=== PATIENT | male | born 1965 | race Caucasian/White ===

== ENCOUNTER → 2020-09-02 08:38 | Outpatient (BNVA) | payer OTHER, SELFPAY | PROVIDERS: PCP Internal Medicine; Visit Provider Family Medicine Adult Medicine | DX: M51.26 Other intervertebral disc displacement, lumbar region (principal); Z79.891 Long term (current) use of opiate analgesic | CPT/HCPCS: 99212 ==

== ENCOUNTER → 2020-10-12 14:01 | Outpatient (BNVA) | payer OTHER, SELFPAY | PROVIDERS: PCP Internal Medicine; Referring Provider Internal Medicine; Visit Provider Nurse Practitioner Family | DX: Z12.11 Encounter for screening for malignant neoplasm of colon (principal) | CPT/HCPCS: Q3014 ==

== ENCOUNTER 2020-11-05 06:56 | Outpatient (REF) | payer OTHER, SELFPAY ==
[2020-11-05 11:15] LABS: Hematocrit 44.3 % (42-52); Hemoglobin 14.1 g/dl (14.0-18.0); Mean Corpuscular HGB Conc 31.8 g/dl (31.0-36.0); Mean Corpuscular Hemoglobin 28.4 pg (27.0-33.0); Mean Corpuscular Volume 89.3 fL (80-98); Mean Platelet Volume 10.6 fL (9.4-12.4); Platelet Count 187 X10*3/uL (160-400); Red Blood Count 4.96 X10*6/uL (4.60-5.80); Red Cell Distribution Width 13.2 % (11.0-16.0); White Blood Count 8.4 X10*3/uL (4.8-10.8)
[2020-11-05 11:41] LABS: Alanine Aminotransferase 17 U/L (0-40); Albumin Level 4.3 g/dL (3.5-5.0); Alkaline Phosphatase 99 U/L (39-117); Anion Gap 12 (12-20); Aspartate Amino Transferase 19 U/L (5-37); Bilirubin Total 0.2 mg/dL (0.0-1.0); Blood Urea Nitrogen 21 mg/dL (9-16); Calcium 8.9 mg/dL (8.4-10.2); Carbon Dioxide 30 mmol/L (22-29); Chloride 101 mmol/L (96-108); Cholesterol 116 mg/dL; Estimated Glomerular Filt Rate > 60; Glucose Random 93 mg/dL (60-115); HDL Cholesterol 34 mg/dL; LDL Cholesterol Calculated 64 mg/dl; Potassium 4.2 mmol/l (3.3-5.1); Sodium 139 mmol/L (135-145); Total Protein 7.3 g/dL (6.5-8.0); Triglycerides 94 mg/dL
== END 2020-11-05 06:57 | disposition home or self-care (01) ==
LOC: HO.HMGCLDS 06:56
PROVIDERS: PCP Internal Medicine; Visit Provider Nurse Practitioner Family
DX: I25.10 Atherosclerotic heart disease of native coronary artery without angina pectoris (principal); Z12.11 Encounter for screening for malignant neoplasm of colon
CPT/HCPCS: 36415; 80053; 80061; 85027

== ENCOUNTER → 2020-11-10 08:32 | Outpatient (BNVA) | payer OTHER, SELFPAY | PROVIDERS: PCP Internal Medicine; Visit Provider Internal Medicine | DX: Z01.810 Encounter for preprocedural cardiovascular examination (principal); I25.10 Atherosclerotic heart disease of native coronary artery without angina pectoris; I25.2 Old myocardial infarction; R06.02 Shortness of breath | CPT/HCPCS: 93005; 99202 ==

== ENCOUNTER → 2020-11-24 08:33 | Outpatient (REF) | payer OTHER, SELFPAY ==
--- NOTE | 2020-11-24 | NM_ITS ---
Lexiscan Myocardial perfusion study Indication: Shortness of breath, preoperative evaluation, assess for coronary disease and ischemia Technique: The patient was brought in for a Lexiscan perfusion study on 11/24/2020 and was injected 0.4 mg of Lexiscan intravenously. Within a minute of this injection 30 mCi of sestamibi was given intravenously. Images were obtained using the SPECT gamma camera interlaced with the gating device. Images were obtained in supine position. Resting perfusion study was performed on 11/25/2020. Patient was administered 30 mCi of sestamibi intravenously at rest. Images were then obtained in supine position. Total DLP 86mGy-cm. Images were processed with the software and compared side to side in short axis, horizontal long axis and vertical long axis views. Findings: Raw acquisition was reviewed. The stress perfusion study showed mildly diminished tracer uptake along the distal inferior wall that is probably from diaphragmatic attenuation artifact. The gated study shows normal LV systolic function with calculated LVEF of 67%. LV cavity is normal in size. The gated study shows normal wall thickening and contraction of segments. Resting study shows mildly diminished tracer uptake along the distal inferior wall, that could be from diaphragmatic artifact. Gating at rest reveals normal wall motion with ejection fraction at 66%. The findings are consistent with no reversible defects. Fixed defect along the distal part of inferior wall likely from diaphragmatic artifact. NM/NM luis f perf SPECT rest & str Impression: 1. Myocardial perfusion imaging study shows no definitive evidence of any ischemia or infarction. 2. Gated LVEF is 67% during stress and 66% during rest. 3. Transient ischemic dilatation not present. EKG component of the test reported separately.
--- NOTE | 2020-11-24 08:36 | CA_ITS ---
Test lost from MUSE system - technical error. Written nursing notes,actual EKG strips from test to be scanned into system. Pharmacological nuclear stress test with Lexiscan injection while sitting and kicking his legs, without anginal symptoms, without arrythmia, with normotensive response to injection, with nondiagnostic EKG for ischemia. Nuclear images pending. Test reviewed with Dr. Jay. Copies of EKG tracings and notes given to Dr. Jay for use during nuclear scan reading. [facility]
--- NOTE | 2020-11-24 08:36 | CA_ITS ---
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 Normal LV systolic function with mild LVH with grade 1 diastolic dysfunction 2. Normal cardiac valvular Doppler 3. Normal RV systolic pressure 4. No pericardial effusion Findings Left Ventricle Normal left ventricular size and systolic function. There is mildly increased left ventricular wall thickness. Spectral Doppler is indicative of an impaired relaxation filling pattern. E/E prime ratio is <8, consistent with normal filling pressures. Evidence suggests grade I (mild) diastolic dysfunction. Right Ventricle Normal right ventricular cavity size and systolic function. Atria The left atrium is likely dilated. Interatrial shunt cannot be excluded. The right atrium is normal in size. Aortic Valve The aortic valve was not well visualized. There is no aortic valve stenosis. There is no aortic valve regurgitation. Mitral Valve Likely normal mitral valve structure and function. There is trace mitral valve regurgitation. There is no mitral valve stenosis. Pulmonic Valve The pulmonic valve was not well visualized. Tricuspid Valve Likely normal tricuspid valve structure and function. There is trace tricuspid valve regurgitation. The right ventricular systolic pressure is normal. The right ventricular systolic pressure is 18 mmHg. Normal right atrial pressure. There is no evidence of pulmonary hypertension. Great Vessels All visible segments of the aorta are normal in size. The pulmonary artery was not well visualized. Venous The inferior vena cava is normal in size and collapses greater than 50% with inspiration. Pericardium/Pleural There is no evidence of pericardial effusion. Prior Study Comparison No previous study in the last 5 years for comparison Measurements 2D Linear Measurements IVSd: 1.33 0.6-0.9/0.6-1.0 cm LVIDd: 4.47 3.9-5.3/4.2-5.9 cm LVIDd Index: 2.16 2.4-3.2/2.2-3.1 cm/m2 LVIDs: 2.65 2.0-3.6 cm LVPWd: 1.29 0.7-1.1 cm Ao Root: 3.70 2.1-3.5 cm LA Diam: 3.70 2.7-3.8/3.0-4.0 cm LAIDs Index: 1.79 1.5-2.3 cm/m2 LV Mass: 277.77 67-162/88-224 g LV Mass Index: 134.19 43-95/49-115 g/m2 LVOT Diam: 2.30 3.0+(-)1.3 cm Mitral Valve MV Pk E: 0.67 MV PK A: 0.83 MV Decel Time: 187.00 E/A: 0.80 E'Lateral: 12.70 E'Medial: 5.22 E/E' Med: 12.90 E/E' Lat: 5.30 PHT: 55.00 MVA PHT: 4.00 Decel [place]: 3.61 Aortic Valve AoV Pk Naseem: 1.48 AoV Mn Naseem: 0.93 AoV VTI: 0.37 AoV Pk Grad: 9.00 Aov Mn Grad: 4.00 TUNG Cont.VTI: 3.27 LVOT LVOT Pk Naseem: 1.23 LVOT Mn Naseem: 0.74 LVOT VTI: 0.30 LVOT Pk Grad: 6.00 LVOT Mn Grad: 3.00 LVOT Diam: 2.30 LVOT Area: 4.15 Diastolic Function MV Pk E: 0.67 MV Pk A: 0.83 E/A: 0.80 E'Medial: 5.22 E/E' Med: 12.90 E' Laterial: 12.70 E/E' Lat: 5.30 Tricuspid Valve TR Pk Naseem: 1.92 TR Pk Grad: 15.00 RA Press: 3.00 RVSP: 18.00 Great Vessels Aorta Ao Root-2D: 3.70 2.0-3.7 cm Ao Asc: 3.80 2.1-3.4 cm Pulmonary Valve PV Pk Naseem: 0.90 Peak PV Grad: 3.00 Updated in Other Vendor System with Status of Final Ryan Lee MD electronically signed on 11/24/2020 3:41:42 PM with status of Final
== END ==
LOC: HO.CARD 08:33
PROVIDERS: PCP Internal Medicine; Visit Provider Internal Medicine
DX: Z01.810 Encounter for preprocedural cardiovascular examination (principal); I25.10 Atherosclerotic heart disease of native coronary artery without angina pectoris
CPT/HCPCS: 78452; 93017; 93306; A9500; J0280; J2785

== ENCOUNTER → 2020-12-08 14:17 | Outpatient (BNVA) | payer OTHER, SELFPAY | PROVIDERS: PCP Internal Medicine; Visit Provider Internal Medicine | DX: Z01.810 Encounter for preprocedural cardiovascular examination (principal); I25.10 Atherosclerotic heart disease of native coronary artery without angina pectoris; I10 Essential (primary) hypertension; E78.5 Hyperlipidemia, unspecified; R06.02 Shortness of breath | CPT/HCPCS: Q3014 ==

== ENCOUNTER 2020-12-21 07:54 | Day surgery (SDC) | payer OTHER, SELFPAY ==
[2020-12-15 19:27] VITALS: BMI 31.1
--- NOTE | 2020-12-20 09:55 | P.CONAN_ITS ---
Documented by User: Jacy Rosales 12/20/20 10:00 HPI - Anesthesia Eval Consult details Narrative: 55yo M for Colonoscopy Cardiac cleared @ low to intermed. Sleep study pending. [facility] Active Problems Active Problems: All Active Problems (Updated 12/15/20 @ 19:26 by Leandra Westfall, RN) Preoperative cardiovascular examination (Acute) SOB (shortness of breath) (Acute) Other and unspecified hyperlipidemia (Acute) Essential hypertension (Acute) Atherosclerotic cardiovascular disease (Acute) Screening for colon cancer (Acute) History of lumbar surgery (Acute) Lumbar discogenic pain syndrome (Acute) Past Medical History Medical History (Updated 12/20/20 @ 09:56 by Jacy Rosales) Atherosclerotic cardiovascular disease Elevated cholesterol Essential hypertension History of [place] (myocardial infarction) Lumbar discogenic pain syndrome Other and unspecified hyperlipidemia Screening for colon cancer Family History Family History Father Hx of type 1 diabetes mellitus Hx of congenital heart disease Mother Alive and well Surgical History Surgical History H/O hernia repair History of intravascular stent placement History of lumbar surgery History of surgery Social History Social History Alcohol intake: never Smoking Status: Never smoker Second Hand Smoke Exposure: No Use of substances other than those prescribed or required for medical reasons: Yes Substance Use Type: Marijuana Substance Use Frequency: Weekly Advance Directives: No Advance Directives Information Provided: No Advance Directives on File: No Recently lost weight without trying: No Meds Allergies Allergy/AdvReac Type Severity Reaction Status Date / Time No Known Allergies Allergy Verified 12/08/20 14:18 Home Medications Medication Instructions Recorded Confirmed Last Taken Type aspirin 81 mg chewable tablet 81 mg PO DAILY 08/31/20 12/08/20 12/19/20 History coenzyme Q10 100 mg capsule 100 mg PO DAILY 11/10/20 12/08/20 Unknown History metoprolol tartrate 50 mg tablet 25 mg PO BID tab 12/08/20 12/08/20 12/21/20 07:20 History Exam Exam Date and Time: December 20, 2020 0955 Height,Weight and Vital Signs: Height 5 ft 8 in Weight 92.986 kg Pertinent Lab Results Pertinent Lab Results: Laboratory Tests 11/05/20 11/05/20 07:01 07:01 WBC 8.4 Hgb 14.1 Hct 44.3 Plt Count 187 Sodium 139 Potassium 4.2 Chloride 101 Carbon Dioxide 30 H BUN 21 H Creatinine 0.83 Narrative Narrative: EKG 10/2020 NSR @ 61 ECHO 10/2020 Conclusions: - 1. Normal LV systolic function with mild LVH with grade 1 diastolic dysfunction 2. Normal cardiac valvular Doppler 3. Normal RV systolic pressure 4. No pericardial effusion NM luis f perf SPECT rest & str 10/2020 Impression: 1. Myocardial perfusion imaging study shows no definitive evidence of any ischemia or infarction. 2. Gated LVEF is 67% during stress and 66% during rest. 3. Transient ischemic dilatation not present. EKG portion nondiagnostic. Assessment and Plan Assessment Anesthesia Assessment: Chart Reviewed Documented by User: Teressa Cervantes 12/21/20 09:16 [facility] Past Medical History Medical History (Updated 12/20/20 @ 09:56 by Jacy Rosales) Atherosclerotic cardiovascular disease Elevated cholesterol Essential hypertension History of [place] (myocardial infarction) Lumbar discogenic pain syndrome Other and unspecified hyperlipidemia Screening for colon cancer Family History Family History Father Hx of type 1 diabetes mellitus Hx of congenital heart disease Mother Alive and well Surgical History Surgical History H/O hernia repair History of intravascular stent placement History of lumbar surgery History of surgery Social History Social History Alcohol intake: never Smoking Status: Never smoker Second Hand Smoke Exposure: No Use of substances other than those prescribed or required for medical reasons: Yes Substance Use Type: Marijuana Substance Use Frequency: Weekly Advance Directives: No Advance Directives Information Provided: No Advance Directives on File: No Recently lost weight without trying: No Meds Allergies Allergy/AdvReac Type Severity Reaction Status Date / Time No Known Allergies Allergy Verified 12/08/20 14:18 Home Medications Medication Instructions Recorded Confirmed Last Taken Type aspirin 81 mg chewable tablet 81 mg PO DAILY 08/31/20 12/08/20 12/19/20 History coenzyme Q10 100 mg capsule 100 mg PO DAILY 11/10/20 12/08/20 Unknown History metoprolol tartrate 50 mg tablet 25 mg PO BID tab 12/08/20 12/08/20 12/21/20 07:20 History Exam Airway Mallampati Class: II (Caps latrally) TM Dist: >3cm Neck ROM: Full Heart: RRR Lungs: CTA BL Assessment and Plan Assessment Anesthesia Assessment: Anesthesia Plan Discussed and Chart Reviewed Final Anesthetic Review NPO: Yes (Sip water meds) ASA Class: III Final Preanesthetic Review: No Changes in Pt Med Stat and Consent Obtain ed/Reviewed Patient Risk: Intermediate Procedure Risk: Intermediate Anesthetic Plan Anesthetic Plan: MAC: Disposition: Standard PACU
[2020-12-21 08:34] VITALS: BP 135/67; PULSE 58; RESP 18; TEMP 36.2; O2SAT 97
[2020-12-21] MEDS: Lactated Ringers 1,000 ML 100 ML IVCONT (08:56)
--- NOTE | 2020-12-21 09:17 | W.PM.OPN ---
Operative Note Operative Note Date of Service: 12/21/20 Narrative: Pre-op diagnosis: Colon cancer screening, positive Cologuard test Post-op diagnosis: other (Colon polyps, diverticulosis, hemorrhoids) Procedure: COLONOSCOPY TILL CECUM WITH SNARE POLYPECTOMY AND SUBMUCOSAL INJECTION Consent: Indications for the procedure and potential complications of bleeding, perforation, reaction to medications and missed diagnosis were discussed with the patient and informed consent was obtained. Instrument: Olympus PCF H 190 L variable stiffness pediatric colonoscope Monitoring: Vital signs and clinical assessment, intermittent blood pressure monitoring, continuous EKG monitoring, Pulse oximetry and Carbon Dioxide monitoring were done throughout the procedure. Colon withdrawl time was 32 minutes. Procedure: The patient was placed in the left lateral decubitis position and pre-procedure medications were administered. After a digital rectal examination of the ano-rectum, the video colonoscope was inserted into the rectum and advanced through the colon to the cecum. The colonoscope was slowly withdrawn in a retrograde panoramic fashion and the colon mucosa was carefully examined including a retroflexed view of the rectum. Findings and interventions are described below. Procedure Difficulty: Without difficulty Findings: Terminal Ileum: Not evaluated Cecum: Normal Ascending Colon: Normal Transverse Colon: A 2-2.5 cms sessile polyp in the distal TC at 65 cms - removed with a hot snare and polypectomy site marked by laura ink (submucosal injection). Descending Colon: Moderate diverticulosis Sigmoid Colon: A 12-15 mm sessile polyp at 40 cms removed with a hot snare and moderate diverticulosis Rectum: Normal Ano-rectum: Small internal hemorrhoids Colon preparation: Good after copious irrigation Impression and Post Procedure Diagnosis: Colonoscopy Findings: Two medium to large sized polyps removed Moderate diverticulosis seen in the left colon Small hemorrhoids on retroflexed exam. Plan: Await pathology results Patient has an appointment on 01/18/21 in the GI [facility] with Annmarie Theodore FNP-BC. Repeat Colonoscopy interval based on path results - in 3-5 years if polyps are adenomatous and 10 years if polyps are hyperplastic. Above findings were reviewed with the patient and colon polyps and diverticulosis handouts were given in the discharge area Surgeon: Luana Connolly MD Anesthesia: MAC (Dr Duffy) Estimated blood loss (mL): 0 Pathology: other (A. Polyp at 65 cms, B. SC polyp x 1) Condition: stable Disposition: PACU
--- NOTE | 2020-12-21 09:17 | MHC.SHP ---
Pre-Procedural Eval Section A The patient is an INPATIENT: No The History & Physical has been completed within 30 days and I have reviewed it.: No Section B Chief Complaint: screening Details of Present Illness: Colon cancer screening, positive Cologuard test Relevant Family History (Specify if Yes): No Relevant Social History: Tobacco Use (past) Present Medications: see Short Stay Collaborative assessment Medical History: Significant History (History of [place] (myocardial infarction) Lumbar discogenic pain syndrome Screening for colon cancer) History of Previous Operations: Relevant previous surgery/procedure and date(s) (H/O hernia repair History of intravascular stent placement History of lumbar surgery History of prosthetic mitral valve of other type History of surgery) Allergies: Allergies Allergy/AdvReac Type Severity Reaction Status Date / Time No Known Allergies Allergy Verified 12/08/20 14:18 Review of Systems Sugical H&P ROS: Negative: Constitution, Cardiovascular, Psychiatric and Gastrointestinal and Yes, Specify: Respiratory (nocturnal shortness of breath) Exam Surgical H&P Exam: Normal: Heart, Normal: Lungs, Normal: Extremities and Normal: Abdomen Plan Diagnosis/Plan: Unchanged I have reviewed the history and physical and performed a pertinent physical examination on my patient. No changes have occurred unless specified.
[2020-12-21 10:13] VITALS: BP 122/64; PULSE 53; RESP 16; TEMP 36.1; O2SAT 99
[2020-12-21 10:28] VITALS: BP 149/75; PULSE 50; RESP 18; TEMP 36.1; O2SAT 100
== END 2020-12-21 11:15 | disposition home or self-care (01) ==
PROVIDERS: PCP Internal Medicine; Visit Provider Internal Medicine Gastroenterology
PROC: 0DJD8ZZ Inspection of Lower Intestinal Tract, Via Natural or Artificial Opening Endoscopic (ICD-10-PCS; CPT 45378; principal; 2020-12-21 09:10)
DX: Z12.11 Encounter for screening for malignant neoplasm of colon (principal); D12.4 Benign neoplasm of descending colon; D12.5 Benign neoplasm of sigmoid colon; K57.30 Diverticulosis of large intestine without perforation or abscess without bleeding; K64.8 Other hemorrhoids; I10 Essential (primary) hypertension; I25.10 Atherosclerotic heart disease of native coronary artery without angina pectoris; Z98.61 Coronary angioplasty status; I25.2 Old myocardial infarction; R06.02 Shortness of breath; Z79.82 Long term (current) use of aspirin; Z79.899 Other long term (current) drug therapy; Z87.891 Personal history of nicotine dependence; F12.90 Cannabis use, unspecified, uncomplicated
CPT/HCPCS: 45385; 45381; 88305

== ENCOUNTER → 2021-01-18 13:59 | Outpatient (BNVA) | payer OTHER, SELFPAY | PROVIDERS: PCP Internal Medicine; Visit Provider Nurse Practitioner Family | DX: D36.9 Benign neoplasm, unspecified site (principal); Z98.890 Other specified postprocedural states | CPT/HCPCS: Q3014 ==

== ENCOUNTER → 2021-08-29 08:21 | Outpatient (BNVA) | payer OTHER, SELFPAY | PROVIDERS: PCP Internal Medicine; Referring Provider Internal Medicine; Visit Provider Internal Medicine | DX: I25.10 Atherosclerotic heart disease of native coronary artery without angina pectoris (principal); I10 Essential (primary) hypertension; E78.5 Hyperlipidemia, unspecified | CPT/HCPCS: 93005; 99212 ==

== ENCOUNTER 2022-04-11 06:37 | Outpatient (REF) | payer OTHER, SELFPAY ==
[2022-04-11 11:57] LABS: Estimated Average Glucose 103 mg/dL; Hemoglobin A1c % 5.2 %; Total Hemoglobin (HGBA1C) 3638.0793 umol/L
[2022-04-11 11:58] LABS: Hematocrit 43.4 % (42.0-52.0); Hemoglobin 14.4 g/dl (14.0-18.0); Mean Corpuscular HGB Conc 33.2 g/dl (31.0-36.0); Mean Corpuscular Hemoglobin 29.1 pg (27.0-33.0); Mean Corpuscular Volume 87.7 fL (80.0-98.0); Mean Platelet Volume 10.4 fL (9.4-12.4); Platelet Count 173 X10*3/uL (160-400); Red Blood Count 4.95 X10*6/uL (4.60-5.80); Red Cell Distribution Width 13.2 % (11.0-16.0)
[2022-04-11 12:12] LABS: Alanine Aminotransferase 18 U/L (0-40); Albumin Level 4.1 g/dL (3.5-5.0); Alkaline Phosphatase 88 U/L (39-117); Anion Gap 13 (12-20); Aspartate Amino Transferase 17 U/L (5-37); Bilirubin Direct 0.2 mg/dL (0.0-0.5); Bilirubin Total 0.3 mg/dL (0.0-1.0); Blood Urea Nitrogen 22 mg/dL (9-16); Calcium 9.1 mg/dL (8.4-10.2); Carbon Dioxide 24 mmol/L (22-29); Chloride 106 mmol/L (96-108); Cholesterol 128 mg/dL; Estimated Glomerular Filt Rate > 60; Glucose Random 103 mg/dL (60-115); HDL Cholesterol 34 mg/dL; LDL Cholesterol Calculated 76 mg/dl; Potassium 4.3 mmol/L (3.3-5.1); Sodium 139 mmol/L (135-145); Total Protein 7.1 g/dL (6.5-8.0); Triglycerides 90 mg/dL
[2022-04-11 12:37] LABS: Prostate Specific Antigen Scr 0.42 ng/mL (<0.05-4.0); Thyroid Stimulating Hormone 1.15 uIU/mL (0.32-4.0)
== END 2022-04-11 06:38 | disposition home or self-care (01) ==
LOC: HO.HMGCLDS 06:37
PROVIDERS: Nurse Practitioner Family; Visit Provider Internal Medicine
DX: R73.9 Hyperglycemia, unspecified (principal); D36.9 Benign neoplasm, unspecified site; I25.10 Atherosclerotic heart disease of native coronary artery without angina pectoris; M51.26 Other intervertebral disc displacement, lumbar region; Z12.5 Encounter for screening for malignant neoplasm of prostate
CPT/HCPCS: 36415; 80048; 80061; 80076; 83036; 84153; 84443; 85027

== ENCOUNTER → 2022-11-13 08:13 | Outpatient (BNVA) | payer OTHER, SELFPAY | PROVIDERS: PCP Internal Medicine; Referring Provider Internal Medicine; Visit Provider Internal Medicine | DX: R00.1 Bradycardia, unspecified (principal); I25.10 Atherosclerotic heart disease of native coronary artery without angina pectoris; I25.2 Old myocardial infarction; I10 Essential (primary) hypertension; E78.5 Hyperlipidemia, unspecified; Z95.5 Presence of coronary angioplasty implant and graft; Z98.890 Other specified postprocedural states | CPT/HCPCS: 93005; 99212 ==

== ENCOUNTER 2023-10-25 09:12 | Outpatient (AMB) | payer OTHER, SELFPAY ==
--- NOTE | 2023-10-25 09:22 | MHC.PC.OV ---
Vital Signs 10/25/23 09:24 Height 5 ft 8 in Weight 218 lb BMI 33.1 BP 120/72 Blood Pressure Location Lt brachial Position Sitting Pulse 65 Pulse Source Pulse Oximeter Pulse Oximetry (%) 96 Oxygen Delivery Method Room Air Intake Visit Reasons: 6mth f/u Intake Note: Patient is here to follow up on HTN, Lumbar discogenic pain disorder, hyperlipidemia. 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 Required per policy Accompanied by: Self / Same As Patient Allergies No Known Allergies Allergy (Verified 11/04/23 19:01) Medication List - Last Reconciled 11/04/23 by Alan Kenney MD aspirin 81 mg PO DAILY coenzyme Q10 (Co Q-10) 100 mg PO DAILY gabapentin 300 mg PO Q8H 90 days lisinopril 10 mg PO DAILY metoprolol tartrate 25 mg (1/2 x 50 mg) PO BID oxycodone-acetaminophen 7.5-325 mg 1 tab PO Q8H PRN 30 days rosuvastatin 20 mg PO BEDTIME Tobacco use date assessed: 10/25/23 Dental Screening Dental Screen Date: 10/25/23 Did you have a dental visit in the last 12 months?: Yes Did you have a dental problem in the last 6 months where you did not have access to dental care?: No Was dental information given to patient?: Patient has dentist HPI 6mth f/u HPI Details 58-year-old male presents to the office to discuss his chronic medical conditions. Patient is taking oxycodone as directed and his chronic pain is reasonably well controlled. He is able to function and do activities of daily living. Compliant with all medications. [facility] Medical History History of [place] (myocardial infarction) Tubular adenoma Elevated cholesterol Other and unspecified hyperlipidemia Essential hypertension Atherosclerotic cardiovascular disease Lumbar discogenic pain syndrome Screening for colon cancer Surgical History History of dental surgery History of bone graft H/O colonoscopy History of lumbar surgery History of intravascular stent placement History of surgery H/O hernia repair Family History Father Hx of type 1 diabetes mellitus Hx of congenital heart disease Mother Alive and well Social History Household Members: Spouse Housing: House Alcohol intake: current Alcohol intake frequency: does not drink Patient Tobacco Use Status: Former Tobacco user Tobacco use type: Cigarette e-Cigarette/Vaping Use: Never Used Second Hand Smoke Exposure: No Substance Use Type: Marijuana service: Yes Current occupational status: employed Cognitive needs: No Hearing needs: No Vision needs: Yes (glasses) Questionnaire Thrive Questionnaire Date Thrive assessed: 04/26/23 MIKAEL-7 AMB Questionnaire MIKAEL-7 Date MIKAEL - 7 assessed: 04/26/23 Source: Developed by Drs. Julito Prasad, Sherita Lucero, Sang Gómez and colleagues, with an educational catie from [employer]. Physical exam (Primary Care) Vital Signs: Last Vital Signs Pulse 65 10/25/23 09:24 BP 120/72 10/25/23 09:24 Pulse Ox 96 10/25/23 09:24 Oxygen Delivery Method Room Air 10/25/23 09:24 BMI result Body Mass Index 33.1 Tobacco/Smoking Status: Tobacco use Status Tobacco use date assessed 10/25/23 10/25/23 09:29 Patient Tobacco Use Status Former Tobacco user 10/25/23 09:24 Tobacco use type Cigarette 10/25/23 09:24 e-Cigarette/Vaping Use Never Used 10/25/23 09:24 Thrive Assessment: Date of Thrive Assessment Date Thrive assessed 04/26/23 10/25/23 09:24 Const General: cooperative and healthy appearing Nutritional Appearance: well nourished Orientation/consciousness: patient oriented x3 Limitations: no limitations HENMT Head: Yes normal to inspection Eyes General: appearance normal, both eyes and all related structures Neck Neck: Yes normal visual inspection Chest Chest palpation & inspection: normal palpation of entire chest wall Resp Effort & Inspection: normal respiratory effort Neuro General: patient oriented x3 Assessment and Plan Assessment & Plan (1) Essential hypertension: Code(s): I10 - Essential (primary) hypertension Plan: Blood pressure is in range. Continue medications at same dosage. (2) Stented coronary artery: Comment: Cardiac catheterization 07/04/2005 99% stenosis of proximal RCA, angioplasty and stent placed, 80% stenosis of RPL, angioplasty and RISHI placed, 75% stenosis of mid circumflex, angioplasty and stent placed Code(s): Z95.5 - Presence of coronary angioplasty implant and graft Plan: Condition is stable. Patient has a regular follow-up with his cardiology. Compliant with all his medications. (3) Atherosclerotic cardiovascular disease: Code(s): I25.10 - Atherosclerotic heart disease of [place] coronary artery without angina pectoris (4) Lumbar discogenic pain syndrome: Code(s): M51.26 - Other intervertebral disc displacement, lumbar region Plan: Patient is taking meds as directed. Orders: Orders Basic Metabolic Panel 11/01/23 I10 - Essential (primary) hypertension Liver Panel 11/01/23 I10 - Essential (primary) hypertension Thyroid Stimulating Hormone 11/01/23 I10 - Essential (primary) hypertension Complete Blood Count no Diff 11/01/23 I10 - Essential (primary) hypertension Lipid Panel 11/01/23 I10 - Essential (primary) hypertension Coding Level of Care Code Est Pt Level 4 (73956) Diagnoses Essential hypertension I10 Stented coronary artery Z95.5 Atherosclerotic cardiovascular disease I25.10 Lumbar discogenic pain syndrome M51.26
[2023-10-25 09:24] VITALS: BP 120/72; PULSE 65; O2SAT 96; BMI 33.1
== END 2023-10-25 09:47 | disposition home or self-care (01) ==
PROVIDERS: PCP Internal Medicine; Visit Provider Internal Medicine
DX: I10 Essential (primary) hypertension (principal); Z95.5 Presence of coronary angioplasty implant and graft; I25.10 Atherosclerotic heart disease of native coronary artery without angina pectoris; M51.26 Other intervertebral disc displacement, lumbar region
CPT/HCPCS: 99214

== ENCOUNTER 2023-11-01 08:14 | Outpatient (REF) | payer OTHER, SELFPAY ==
[2023-11-01 10:27] LABS: Alanine Aminotransferase 15 U/L (0-40); Albumin Level 4.1 g/dL (3.5-5.0); Alkaline Phosphatase 77 U/L (39-117); Anion Gap 12 (12-20); Aspartate Amino Transferase 17 U/L (5-37); Bilirubin Direct 0.2 mg/dL (0.0-0.5); Bilirubin Total 0.5 mg/dL (0.0-1.0); Blood Urea Nitrogen 15 mg/dL (9-16); Calcium 9.5 mg/dL (8.4-10.2); Carbon Dioxide 28 mmol/L (22-29); Chloride 105 mmol/L (96-108); Cholesterol 114 mg/dL (<200); Estimated Glomerular Filt Rate > 60; Glucose Random 98 mg/dL (60-115); HDL Cholesterol 33 mg/dL (>40); LDL Cholesterol Calculated 62 mg/dL (<100); Potassium 4.3 mmol/L (3.3-5.1); Sodium 141 mmol/L (135-145); Total Protein 7.4 g/dL (6.5-8.0); Triglycerides 95 mg/dL (<150)
[2023-11-01 10:44] LABS: Thyroid Stimulating Hormone 0.97 uIU/mL (0.32-4.0)
== END 2023-11-01 08:15 | disposition home or self-care (01) ==
LOC: HO.LAB 08:14
PROVIDERS: PCP Internal Medicine; Visit Provider Nurse Practitioner Family
DX: I10 Essential (primary) hypertension (principal); I25.10 Atherosclerotic heart disease of native coronary artery without angina pectoris; I25.2 Old myocardial infarction; E78.5 Hyperlipidemia, unspecified; Z95.5 Presence of coronary angioplasty implant and graft
CPT/HCPCS: 36415; 80048; 80061; 80076; 84443; 85027; 93005; 99212

== ENCOUNTER 2023-11-01 08:14 | Outpatient (AMB) | payer OTHER, SELFPAY ==
[2023-11-01 08:18] VITALS: BP 120/60; PULSE 62; BMI 33.2
--- NOTE | 2023-11-01 08:18 | MHC.OFFVIS ---
Intake Vital Signs 11/01/23 08:18 Height 5 ft 8 in Weight 218 lb 11.177 oz BMI 33.2 BP 120/60 Blood Pressure Location Lt brachial Position Sitting Pulse 62 Intake Visit Reasons: 1 year follow up Intake Note: 1 yr f/up pt its feeling good. Pediatric Registered Nurse Required: No Accompanied by: Self / Same As Patient Allergies No Known Allergies Allergy (Verified 10/25/23 09:24) Medication List - Last Reconciled 11/01/23 by Valerie Curry NP-C aspirin 81 mg PO DAILY coenzyme Q10 (Co Q-10) 100 mg PO DAILY gabapentin 300 mg PO Q8H 90 days lisinopril 10 mg PO DAILY metoprolol tartrate 25 mg (1/2 x 50 mg) PO BID oxycodone-acetaminophen 7.5-325 mg 1 tab PO Q8H PRN 30 days rosuvastatin 20 mg PO BEDTIME HPI 1 year follow up HPI Details Garry is a 58-year-old male with past medical history hypertension, hyperlipidemia, [place], coronary stents who presents for follow-up. Today he reports he has been doing well over the last year with no concerning symptoms. He denies any chest discomfort at rest or with activity. He denies shortness of breath, palpitations, presyncope, syncope, PND, orthopnea or edema. 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 He is having issues with low back discomfort. He is hoping to cut back work in the near future. Taking all meds as directed. [facility] Medical History (Updated 11/01/23 @ 11:36 by Valerie Curry, KEENAN-Christian) History of [place] (myocardial infarction) Tubular adenoma Elevated cholesterol Other and unspecified hyperlipidemia Essential hypertension Atherosclerotic cardiovascular disease Lumbar discogenic pain syndrome Screening for colon cancer Surgical History (Updated 11/01/23 @ 11:37 by Valerie Curry, KEENAN-C) History of dental surgery History of bone graft H/O colonoscopy History of lumbar surgery History of intravascular stent placement History of surgery H/O hernia repair Family History Father Hx of type 1 diabetes mellitus Hx of congenital heart disease Mother Alive and well Social History Household Members: Spouse Housing: House Alcohol intake: current Alcohol intake frequency: does not drink Patient Tobacco Use Status: Former Tobacco user Tobacco use type: Cigarette e-Cigarette/Vaping Use: Never Used Second Hand Smoke Exposure: No Substance Use Type: Marijuana service: Yes Current occupational status: employed Cognitive needs: No Hearing needs: No Vision needs: Yes (glasses) Review of Systems Const All systems reviewed & are unremarkable except as noted in HPI and below Denies chills, Denies fatigue, Denies fever(s), Denies frequent falls, Denies weakness, Denies weight gain and Denies weight loss ENT Denies dizziness Card Denies chest pain, Denies leg edema, Denies lightheadedness, Denies palpitations, Denies dyspnea and Denies dyspnea on exertion Resp Denies cough, Denies dyspnea and Denies dyspnea on exertion GI Denies hematochezia Musc Details: back discomfort Denies abnormal gait, Denies muscle weakness, Denies numbness, Denies radiating pain into limb and Denies tingling Neuro Denies abnormal gait, Denies dizziness, Denies frequent falls, Denies numbness, Denies tingling and Denies weakness Endo Denies fatigue and Denies palpitations Physical Exam Vital Signs: Last Vital Signs Pulse 62 11/01/23 08:18 BP 120/60 11/01/23 08:18 BMI result Body Mass Index 33.2 Const General: cooperative, healthy appearing, comfortable and no acute distress Orientation/consciousness: patient oriented x3 Neck Neck: Yes normal visual inspection Resp Effort & Inspection: normal respiratory effort Auscultation: clear to auscultation bilaterally, no crackles, no rales, no rhonchi and no wheezes Cardio Jugular venous distension: no JVD Rate: regular rate Rhythm: regular rhythm Heart sounds: S1 normal heart sound present, S2 normal heart sound present, no murmurs and no rubs Skin General skin exam: no rashes or lesions noted Neuro General: patient oriented x3 Extrem General: Yes normal to inspection Psych Appearance: grossly normal Mental Status: mental status grossly normal Speech and movement: Normal speech and movement present Office Procedures EKG Details: Today read by me, normal sinus rhythm, no acute ST or T-wave abnormalities, rate 62, QTC 401 milliseconds [id number], Complete Assessment & Plan Assessment & Plan (1) Atherosclerotic cardiovascular disease: Code(s): I25.10 - Atherosclerotic heart disease of [place] coronary artery without angina pectoris Plan: History of CAD with prior [place]. cardiac catheterization 07/04/2005 with stents placed to the RCA, RPL, and left circumflex. Last nuclear stress test done 10/2020 showing normal myocardial perfusion imaging. Last echocardiogram 10/2020 showed normal EF. At this time he denies any anginal sounding symptoms. EKG done today showing normal sinus rhythm with no acute ST or T-wave abnormalities, rate 62. He will continue on aspirin indefinitely. Continue rosuvastatin with ideal LDL goal less than 70. Will he has upcoming labs do and cholesterol will be checked at that time. He is on metoprolol and lisinopril. Blood pressure is well controlled. Reviewed low-fat diet, activity as tolerated, signs and symptoms of angina. Cardiology follow-up in 1 year, sooner if needed. (2) History of [place] (myocardial infarction): Comment: 2004 Code(s): I25.2 - Old myocardial infarction Plan: As above (3) Stented coronary artery: Comment: Cardiac catheterization 07/04/2005 99% stenosis of proximal RCA, angioplasty and stent placed, 80% stenosis of RPL, angioplasty and RISHI placed, 75% stenosis of mid circumflex, angioplasty and stent placed Code(s): Z95.5 - Presence of coronary angioplasty implant and graft Plan: As above (4) Essential hypertension: Code(s): I10 - Essential (primary) hypertension Plan: Well controlled at this time. Continue on lisinopril and metoprolol. He has upcoming labs due. (5) Other and unspecified hyperlipidemia: Code(s): E78.5 - Hyperlipidemia, unspecified Plan: [place] LDL goal less than 70. Labs done 04/11/2022 showed LDL 76. He is on rosuvastatin 20 mg daily. Lipid profile will be done in the near future. Order already in place. Plan Time spent on chart review, documentation, interview and assessment Coding Level of Care Code Est Pt Level 4 (42553) Diagnoses Atherosclerotic cardiovascular disease I25.10 History of [place] (myocardial infarction) I25.2 Stented coronary artery Z95.5 Essential hypertension I10 Other and unspecified hyperlipidemia E78.5 CPT Codes EKG - CPT: 27055-[id number], Complete ([id number]) Time Spent (min) 28
== END 2023-11-01 08:44 | disposition home or self-care (01) ==
PROVIDERS: PCP Internal Medicine; Visit Provider Nurse Practitioner Family
DX: I25.10 Atherosclerotic heart disease of native coronary artery without angina pectoris (principal); I25.2 Old myocardial infarction; Z95.5 Presence of coronary angioplasty implant and graft; I10 Essential (primary) hypertension; E78.5 Hyperlipidemia, unspecified
CPT/HCPCS: 93010; 99214

== ENCOUNTER 2024-04-24 08:44 | Outpatient (AMB) | payer OTHER, SELFPAY ==
--- NOTE | 2024-04-24 08:52 | A.OFFPC_ITS ---
Vital Signs 04/24/24 08:55 Height 5 ft 8 in Weight 220 lb 6 oz BMI 33.5 BP 150/70 H Blood Pressure Location Lt brachial Position Sitting Pulse 64 Pulse Source Pulse Oximeter Pulse Oximetry (%) 97 Oxygen Delivery Method Room Air Intake Visit Reasons: Annual Exam Intake Note: Patient is here today for a physical. Operations Boardman Required: No Power And Recovery Superintendent: Not Required per policy Accompanied by: Self / Same As Patient Allergies No Known Allergies Allergy (Verified 04/24/24 09:48) Medication List - Last Reconciled 04/24/24 by Alan Kenney MD aspirin 81 mg PO DAILY coenzyme Q10 (Co Q-10) 100 mg PO DAILY gabapentin 300 mg PO Q8H 90 days lisinopril 10 mg PO DAILY metoprolol tartrate 25 mg (1/2 x 50 mg) PO BID oxycodone-acetaminophen 7.5-325 mg 1 tab PO Q8H PRN 30 days pantoprazole 40 mg PO DAILY rosuvastatin 20 mg PO BEDTIME Tobacco use date assessed: 04/24/24 Dental Screening Dental Screen Date: 04/24/24 Did you have a dental visit in the last 12 months?: Yes Did you have a dental problem in the last 6 months where you did not have access to dental care?: No Was dental information given to patient?: Patient has dentist HPI Annual Exam HPI Details 59-year-old male presents to the office requesting an annual physical. In addition patient wants to discuss symptoms of belching and burping he has been having in the past few months. He feels bloated at times. No weight loss. No fevers or chills. [facility] Medical History History of [place] (myocardial infarction) Tubular adenoma Elevated cholesterol Other and unspecified hyperlipidemia Essential hypertension Atherosclerotic cardiovascular disease Lumbar discogenic pain syndrome Screening for colon cancer Surgical History History of dental surgery History of bone graft H/O colonoscopy History of lumbar surgery History of intravascular stent placement History of surgery H/O hernia repair Family History Father Hx of type 1 diabetes mellitus Hx of congenital heart disease Mother Alive and well Social History Household Members: Spouse Housing: House Alcohol intake: current Alcohol intake frequency: does not drink Patient Tobacco Use Status: Former Tobacco user Tobacco use type: Cigarette e-Cigarette/Vaping Use: Never Used Second Hand Smoke Exposure: No Substance Use Type: Marijuana service: Yes Current occupational status: employed Cognitive needs: No Hearing needs: No Vision needs: Yes (glasses) Questionnaire PHQ-9 Over the last 2 weeks, how often have you been bothered by any of the following problems? 1. Little interest or pleasure in doing things: not at all 2. Feeling down, depressed, or hopeless: not at all 3. Trouble falling or staying asleep, or sleeping too much: not at all 4. Feeling tired or having little energy: not at all 5. Poor appetite or overeating: not at all 6. Feeling bad about yourself - or that you are a failure or have let yourself or your family down: not at all 7. Trouble concentrating on things, such as reading the newspaper or watching television: not at all 8. Moving or speaking so slowly that other people could have noticed. Or the opposite - being so fidgety or restless that you have been moving around a lot more than usual: not at all 9. Thoughts that you would be better off or of hurting yourself in some way: not at all Total score: 0 Depression Screening Interpretation: Negative Depression Screening Done: Yes Source: Developed by Drs. Julito Prasad, Sherita Lucero, Sang Gómez and colleagues, with an educational catie from [employer]. Thrive Questionnaire Date Thrive assessed: 04/24/24 I am a: Patient What is your living situation today?: I have a steady place to live Within the past 12 months, did the food you bought not last and you didn't have the money to get more?: Never true Within the past 12 months, did you worry whether your food would run out before you got money to buy more?: Never true Do you have trouble paying for medicines?: No Do you have trouble getting transportation to medical appointments?: No Do you have trouble paying your heating and electricity bill?: No Do you have trouble taking care of your child, family member or friend?: No Do you have trouble with day-to-day activities such as bathing, preparing meals, shopping, managing finances, etc.?: No Are you currently unemployed and looking for a job?: No Are you interested in more education?: No Currently or been in a relationship where the following occur: No concerns reported THRIVE Score: 0 AUDIT C Alcohol Use Questionnaire (AUDIT-C) 1. How often do you have a drink containing alcohol?: Never Total Score: 0 MIKAEL-7 AMB Questionnaire MIKAEL-7 Date MIKAEL - 7 assessed: 04/24/24 Feeling nervous, anxious, or on edge: 0 = Not at all Not being able to stop or control worryin = Not at all Worrying too much about different things: 0 = Not at all Trouble relaxin = Not at all Being so restless that it is hard to sit still: 0 = Not at all Becoming easily annoyed or irritable: 0 = Not at all Feeling afraid as if something awful might happen: 0 = Not at all Total MIKAEL-7 score (0-4 normal; 5-9 mild; 10-14 moderate; 15-21 severe): 0 Source: Developed by Drs. Julito Prasad, Sherita Lucero, Sang Gómez and colleagues, with an educational catie from [employer]. Physical exam (Primary Care) Vital Signs: Last Vital Signs Pulse 64 04/24/24 08:55 BP 150/70 H 04/24/24 08:55 Pulse Ox 97 04/24/24 08:55 Oxygen Delivery Method Room Air 04/24/24 08:55 Care Plan Goal for BP management: Elevated blood pressure noted. Continue medications at same dosage. BMI result Body Mass Index 33.5 BMI Assessment/Plan discussion: High (1 lb per week weight loss suggested.) BMI High, discussed plan: lifestyle, weight reduction and dietary Tobacco/Smoking Status: Tobacco use Status Tobacco use date assessed 04/24/24 04/24/24 08:55 Patient Tobacco Use Status Former Tobacco user 04/24/24 08:55 Tobacco use type Cigarette 04/24/24 08:55 e-Cigarette/Vaping Use Never Used 04/24/24 08:55 PHQ-9: PHQ-9 Score PHQ-9: Total score 0 04/24/24 08:55 Depression Screening Interpretation: Negative Thrive Assessment: Date of Thrive Assessment Date Thrive assessed 04/24/24 04/24/24 08:55 Currently or been in a relationship where the following occur: No concerns reported Const General: cooperative and healthy appearing Nutritional Appearance: well nourished Orientation/consciousness: patient oriented x3 Limitations: no limitations HENMT Head: Yes normal to inspection Eyes General: appearance normal, both eyes and all related structures Neck Neck: Yes normal visual inspection Chest Chest palpation & inspection: normal palpation of entire chest wall Resp Effort & Inspection: normal respiratory effort Neuro General: patient oriented x3 Assessment and Plan Assessment & Plan (1) Annual physical exam: Code(s): Z00.00 - Encounter for general adult medical examination without abnormal findi ngs Plan: Pantoprazole added to the regimen. Blood work reviewed. Continue medications at same dosage. Medications: New pantoprazole 40 mg PO DAILY 90 tabs 1RF Coding Level of Care Code Est Pt Prev Care 40-64y(98758) Diagnoses Annual physical exam Z00.00
[2024-04-24 08:55] VITALS: BP 150/70; PULSE 64; O2SAT 97; BMI 33.5
== END 2024-04-24 09:38 | disposition home or self-care (01) ==
LOC: HO.HMGH 08:44
PROVIDERS: PCP Internal Medicine; Visit Provider Internal Medicine
DX: Z00.00 Encounter for general adult medical examination without abnormal findings (principal)
CPT/HCPCS: 99396

== ENCOUNTER 2024-07-31 08:02 | Outpatient (AMB) | payer OTHER, SELFPAY ==
--- NOTE | 2024-07-31 08:07 | MHC.PC.OV ---
Vital Signs 07/31/24 08:08 Height 5 ft 8 in Weight 220 lb BMI 33.4 BP 140/84 H Blood Pressure Location Lt brachial Position Sitting Pulse 82 Pulse Source Pulse Oximeter Pulse Oximetry (%) 98 Oxygen Delivery Method Room Air Intake Visit Reasons: 3 Month F/U Intake Note: Patient here for a 3 month follow up Supervisor Sunglasses Required: No Accompanied by: Self / Same As Patient Allergies No Known Allergies Allergy (Verified 07/31/24 08:37) Medication List - Last Reconciled 07/31/24 by Alan Kenney MD aspirin 81 mg PO DAILY coenzyme Q10 (Co Q-10) 100 mg PO DAILY gabapentin 300 mg PO Q8H 90 days lisinopril 10 mg PO DAILY metoprolol tartrate 25 mg (1/2 x 50 mg) PO BID oxycodone-acetaminophen 7.5-325 mg 1 tab PO Q8H PRN 30 days rosuvastatin 20 mg PO BEDTIME Tobacco use date assessed: 04/24/24 Dental Screening Dental Screen Date: 04/24/24 HPI 3 Month F/U HPI Details 59-year-old male presents to the office to discuss his chronic medical conditions. Patient is taking long-term opiates for his back pain. Symptoms of back pain are stable. However for the past month he is now having sharp pains in the right hip and knee. Symptoms are worse despite him on these opioid medications. Does not recall any fall or injury prior to the onset of symptoms. He has constant pain in the right hip, worse on lying in the right side. Occasional pain in the right knee. Also complaining of twinges in the left chest at times. No shortness a breath or diaphoresis. Patient has history of coronary artery disease. [facility] Medical History History of [place] (myocardial infarction) Tubular adenoma Elevated cholesterol Other and unspecified hyperlipidemia Essential hypertension Atherosclerotic cardiovascular disease Lumbar discogenic pain syndrome Screening for colon cancer Surgical History (Updated 07/31/24 @ 08:12 by Alan Kenney MD) History of dental surgery History of bone graft H/O colonoscopy (~11/29/20) History of lumbar surgery History of intravascular stent placement History of surgery H/O hernia repair Family History Father Hx of type 1 diabetes mellitus Hx of congenital heart disease Mother Alive and well Social History Household Members: Spouse Housing: House Alcohol intake: current Alcohol intake frequency: does not drink Patient Tobacco Use Status: Former Tobacco user Tobacco use type: Cigarette e-Cigarette/Vaping Use: Never Used Second Hand Smoke Exposure: No Substance Use Type: Marijuana service: Yes Current occupational status: employed Current occupational exposures/hazards: No Cognitive needs: No Hearing needs: No Vision needs: Yes (glasses) Questionnaire Thrive Questionnaire Date Thrive assessed: 04/24/24 Are you currently unemployed and looking for a job?: No MIKAEL-7 AMB Questionnaire MIKAEL-7 Date MIKAEL - 7 assessed: 04/24/24 Source: Developed by Drs. Julito Prasad, Sherita Lucero, Sang Gómez and colleagues, with an educational catie from [employer]. Physical exam (Primary Care) BMI result Body Mass Index 33.4 BMI Assessment/Plan discussion: High (1 lb per week weight loss suggested.) BMI High, discussed plan: lifestyle, weight reduction and dietary Tobacco/Smoking Status: Tobacco use Status Tobacco use date assessed 04/24/24 04/24/24 08:55 Patient Tobacco Use Status Former Tobacco user 04/24/24 08:55 Tobacco use type Cigarette 04/24/24 08:55 e-Cigarette/Vaping Use Never Used 04/24/24 08:55 Thrive Assessment: Date of Thrive Assessment Date Thrive assessed 04/24/24 04/24/24 08:55 Const General: cooperative and healthy appearing Nutritional Appearance: well nourished Orientation/consciousness: patient oriented x3 Limitations: no limitations HENMT Head: Yes normal to inspection Eyes General: appearance normal, both eyes and all related structures Neck Neck: Yes normal visual inspection Chest Chest palpation & inspection: normal palpation of entire chest wall Resp Effort & Inspection: normal respiratory effort Neuro General: patient oriented x3 Extrem Other: Right hip: Pain on adduction and abduction. Office Procedures Flu Questionnaire Does the patient have a severe egg allergy?: No Immunizations Fluarix Triv [id number] (PF) 45 mcg (15 mcg x 3)/0.5 mL IM syringe Performing Provider: Alan Kenney MD Performing Location: [facility] Documented (not given) by: LISBETH Yang on 07/31/24 08:13 Reason Not Given: Patient Refused Coding Level of Care Code Est Pt Level 4 (53333) Complex EM visit Add On G2211 Diagnoses Essential hypertension I10 Osteoarthritis of right hip M16.11 Chest pain R07.9 Lumbar discogenic pain syndrome M51.26 Assessment & Plan Assessment & Plan (1) Essential hypertension: Code(s): I10 - Essential (primary) hypertension Category: Medical Plan: Blood pressure is stable. (2) Osteoarthritis of right hip: Code(s): M16.11 - Unilateral primary osteoarthritis, right hip Plan: X-ray of the hip and right knee has been ordered. (3) Chest pain: Code(s): R07.9 - Chest pain, unspecified Plan: A cardiology appointment has been requested. Patient has history of prior coronary artery disease. Stress test done earlier this year was unremarkable. (4) Lumbar discogenic pain syndrome: Code(s): M51.26 - Other intervertebral disc displacement, lumbar region Category: Medical Plan: Continue opiates at same dosage. Orders: Orders XR knee RT 3V Today M19.90 - Unspecified osteoarthritis, unspecified site, S83.91XA - Sprain of unspecified site of right knee, initial encounter Influenza [id number] Immunization Today Z23 - Encounter for immunization XR hip RT w PEL1V Today M19.90 - Unspecified osteoarthritis, unspecified site
[2024-07-31 08:08] VITALS: BP 140/84; PULSE 82; O2SAT 98; BMI 33.4
== END 2024-07-31 08:32 | disposition home or self-care (01) ==
PROVIDERS: PCP Internal Medicine; Visit Provider Internal Medicine
DX: I10 Essential (primary) hypertension (principal); M16.11 Unilateral primary osteoarthritis, right hip; R07.9 Chest pain, unspecified; M51.26 Other intervertebral disc displacement, lumbar region; Z23 Encounter for immunization

== ENCOUNTER → 2024-07-31 08:02 | Outpatient (BNVA) | payer OTHER, SELFPAY | PROVIDERS: PCP Internal Medicine; Visit Provider Internal Medicine | DX: I10 Essential (primary) hypertension (principal); M16.11 Unilateral primary osteoarthritis, right hip; R07.9 Chest pain, unspecified; M51.26 Other intervertebral disc displacement, lumbar region | CPT/HCPCS: 90471; 99212 ==

== ENCOUNTER 2024-08-05 09:07 | Outpatient (REF) | payer OTHER, SELFPAY | END 2024-08-05 09:08 | disposition home or self-care (01) | LOC: HO.XRAY 09:07 | PROVIDERS: PCP Internal Medicine; Visit Provider Internal Medicine | DX: S83.91XA Sprain of unspecified site of right knee, initial encounter (principal); M19.90 Unspecified osteoarthritis, unspecified site | CPT/HCPCS: 73502; 73562 ==

== ENCOUNTER → 2024-10-01 08:06 | Outpatient (REF) | payer OTHER, SELFPAY ==
--- NOTE | 2024-10-01 08:09 | CA_ITS ---
Transthoracic Echocardiogram Patient (Last, First, Middle): Garry Naranjo F Gender: Male Date of : 1965 Age: 59 Procedure Date: 10/01/2024 Procedure Type: Transthoracic Echocardiogram Location: OP Height: 175.26 cm Weight: 98.43 kg BSA: 2.14 m2 Heart Rate: 60 bpm BP: 138 / 80 mmHg Underground Heavy Equipment Operator: SILVIA Referring MD: Valerie Curry DIRECTOR SPEECH AND HEARING-C Automotive Drivability Technician: Ryan Lee MD Symptoms: I25.2 Old myocardial infarction, Z95.5 Coronary angioplasty implant and gra Study Quality: Adequate w contrast ECG Rhythm: Sinus Conclusions: - 1. Hyperdynamic LV ejection fraction greater than 70% with impaired relaxation filling pattern 2. Cardiac valvular Dopplers within normal limits 3. Mildly dilated ascending aorta at 3.7 cm Findings Procedure Information Contrast agent, definity, is being given per protocol without apparent complications. The quality of the study was technically difficult. The study quality is limited by lung artifact. Left Ventricle Normal left ventricular cavity size. There is normal left ventricular wall thickness. The left ventricular systolic function is hyperdynamic. The visually estimated ejection fraction is >70%. Spectral Doppler is indicative of an impaired relaxation filling pattern. Right Ventricle Normal right ventricular cavity size and systolic function. Atria The left atrium is normal in size. Interatrial shunt cannot be excluded. The right atrium was not well visualized. Aortic Valve The aortic valve structure and function is likely normal. There is no aortic valve stenosis. There is no aortic valve regurgitation. Mitral Valve The mitral valve was not well visualized. There is trace mitral valve regurgitation. There is no mitral valve stenosis. Pulmonic Valve The pulmonic valve was not well visualized. Tricuspid Valve The tricuspid valve was not well visualized. Tricuspid regurgitation envelope is inadequate for calculation of right ventricular systolic pressure. Normal right atrial pressure. Great Vessels The pulmonary artery was not well visualized. There is mild dilatation of the ascending aorta measuring 3.70 cm. Venous The inferior vena cava is normal in size and collapses greater than 50% with inspiration. Pericardium/Pleural There is no evidence of pericardial effusion. Prior Study Comparison No significant change compared to prior study dated: 11/24/2020. Measurements 2D Linear Measurements IVSd: 0.90 0.6-0.9/0.6-1.0 cm LVIDd: 4.75 3.9-5.3/4.2-5.9 cm LVIDd Index: 2.22 2.4-3.2/2.2-3.1 cm/m2 LVIDs: 3.01 2.0-3.6 cm LVPWd: 0.88 0.7-1.1 cm LA Diam: 3.90 2.7-3.8/3.0-4.0 cm LAIDs Index: 1.82 1.5-2.3 cm/m2 LV Mass: 177.19 67-162/88-224 g LV Mass Index: 82.80 43-95/49-115 g/m2 LVOT Diam: 2.30 3.0+(-)1.3 cm 2D Systolic Function EF 4C: 77.20 >55% EF 2C: 71.90 >55% EF BiP: 74.90 >55% Mitral Valve MV Pk E: 0.63 MV PK A: 0.70 MV Decel Time: 223.00 E/A: 0.90 E'Lateral: 9.90 E'Medial: 4.68 E/E' Med: 13.50 E/E' Lat: 6.40 PHT: 65.00 MVA PHT: 3.38 Decel Ransom: 2.85 Aortic Valve AoV Pk Naseem: 1.45 AoV Pk Grad: 8.00 LVOT LVOT Pk Naseem: 1.38 LVOT Mn Naseem: 0.88 LVOT VTI: 0.26 LVOT Pk Grad: 8.00 LVOT Mn Grad: 4.00 LVOT Diam: 2.30 LVOT Area: 4.15 Diastolic Function MV Pk E: 0.63 MV Pk A: 0.70 E/A: 0.90 E'Medial: 4.68 E/E' Med: 13.50 E' Laterial: 9.90 E/E' Lat: 6.40 Right Ventricle TAPSE (mm): 23.50 TVS' Naseem: 15.30 Tricuspid Valve RA Press: 3.00 Great Vessels Aorta Sinus of Valsalva: 4.20 2.0-3.5 cm Ao Asc: 3.70 2.1-3.4 cm Pulmonary Veins Pulm Vein S/D 1.20 Pulmonary Valve PV Pk Naseem: 0.93 Peak PV Grad: 3.00 Updated in Other Vendor System with Status of Final Ryan Lee MD electronically signed on 10/01/2024 3:29:14 PM with status of Final
== END ==
LOC: HO.CARD 08:06
PROVIDERS: PCP Internal Medicine; Visit Provider Nurse Practitioner Family
DX: R61 Generalized hyperhidrosis (principal); I25.2 Old myocardial infarction; Z95.5 Presence of coronary angioplasty implant and graft
CPT/HCPCS: 93306; Q9957

== ENCOUNTER → 2024-10-01 08:09 | Outpatient (BNV) | payer OTHER, SELFPAY | PROVIDERS: PCP Internal Medicine; Visit Provider Internal Medicine Cardiovascular Disease | DX: I42.8 Other cardiomyopathies (principal); I25.2 Old myocardial infarction; Z95.5 Presence of coronary angioplasty implant and graft | CPT/HCPCS: 93306 ==

== ENCOUNTER 2024-10-17 06:58 | Outpatient (REF) | payer OTHER, SELFPAY ==
[2024-10-17 11:02] LABS: Hematocrit 44.3 % (42.0-52.0); Hemoglobin 14.8 g/dl (14.0-18.0); Mean Corpuscular HGB Conc 33.4 g/dl (31.0-36.0); Mean Corpuscular Hemoglobin 29.3 pg (27.0-33.0); Mean Corpuscular Volume 87.7 fL (80.0-98.0); Mean Platelet Volume 10.4 fL (9.4-12.4); Platelet Count 171 X10*3/uL (160-400); Red Blood Count 5.05 X10*6/uL (4.60-5.80); Red Cell Distribution Width 13.2 % (11.0-16.0); White Blood Count 8.5 X10*3/uL (4.8-10.8)
[2024-10-17 11:28] LABS: Alanine Aminotransferase 18 U/L (0-40); Albumin Level 4.1 g/dL (3.5-5.0); Alkaline Phosphatase 78 U/L (39-117); Anion Gap 11 (12-20); Aspartate Amino Transferase 27 U/L (5-37); Bilirubin Direct 0.2 mg/dL (0.0-0.5); Bilirubin Total 0.4 mg/dL (0.0-1.0); Blood Urea Nitrogen 14 mg/dL (9-16); Calcium 9.4 mg/dL (8.4-10.2); Carbon Dioxide 29 mmol/L (22-29); Chloride 105 mmol/L (96-108); Cholesterol 118 mg/dL (<200); Estimated Glomerular Filt Rate > 60; Glucose Random 100 mg/dL (60-115); HDL Cholesterol 30 mg/dL (>40); LDL Cholesterol Calculated 67 mg/dL (<100); Potassium 4.2 mmol/L (3.3-5.1); Sodium 141 mmol/L (135-145); Total Protein 7.3 g/dL (6.5-8.0); Triglycerides 109 mg/dL (<150)
[2024-10-17 11:46] LABS: Thyroid Stimulating Hormone 1.69 uIU/mL (0.32-4.0)
== END 2024-10-17 06:59 | disposition home or self-care (01) ==
LOC: HO.HMGCLDS 06:58
PROVIDERS: PCP Internal Medicine; Visit Provider Internal Medicine
DX: I25.2 Old myocardial infarction (principal); Z95.5 Presence of coronary angioplasty implant and graft
CPT/HCPCS: 36415; 80048; 80061; 80076; 84443; 85027

== ENCOUNTER 2024-10-20 10:27 | Outpatient (AMB) | payer OTHER, SELFPAY ==
--- NOTE | 2024-10-20 10:29 | A.OFFVIS_ITS ---
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 He had a myocardial infarction in 2004. At that time, he underwent cardiac catheterization and stenting. From cardiac, no specific complaints like angina. He feels some swelling in his forehead but etiology for that is not clear. He is not feeling any chest pains whatsoever. He feels he is gaining weight but documented weight has not changed in the last couple of years. [facility] Medical History History of [place] (myocardial infarction) Tubular adenoma Elevated cholesterol Other and unspecified hyperlipidemia Essential hypertension Atherosclerotic cardiovascular disease Lumbar discogenic pain syndrome Screening for colon cancer Surgical History History of dental surgery History of bone graft H/O colonoscopy (~11/29/20) History of lumbar surgery History of intravascular stent placement History of surgery H/O hernia repair Family History Father Hx of type 1 diabetes mellitus Hx of congenital heart disease Mother Alive and well Social History Household Members: Spouse Housing: House Alcohol intake: current Alcohol intake frequency: does not drink Patient Tobacco Use Status: Former Tobacco user Tobacco use type: Cigarette e-Cigarette/Vaping Use: Never Used Second Hand Smoke Exposure: No Substance Use Type: Marijuana service: Yes Current occupational status: employed Current occupational exposures/hazards: No Cognitive needs: No Hearing needs: No Vision needs: Yes (glasses) Review of Systems Const Denies chills, Reports excessive sweating, Denies fatigue, Denies fever(s), Denies weight gain and Denies weight loss ENT Denies dizziness Card Denies chest pain, Denies leg edema, Denies lightheadedness, Denies palpitations, Denies dyspnea on exertion, Denies orthopnea and Denies other Resp Denies cough and Denies dyspnea on exertion GI Denies hematochezia and Denies change in stool character Musc Denies abnormal gait, Denies muscle weakness, Denies numbness, Denies radiating pain into limb and Denies tingling Neuro Denies abnormal gait, Denies dizziness, Denies numbness and Denies tingling Endo Reports excessive sweating, Denies fatigue and Denies palpitations Physical Exam Vital Signs: Last Vital Signs Pulse 75 10/20/24 10:30 BP 110/58 L 10/20/24 10:30 BMI result Body Mass Index 33.4 Const General: comfortable and no acute distress Orientation/consciousness: patient oriented x3 HEENT Other: Unremarkable Head: Yes normal to inspection Neck Neck: Yes normal visual inspection Chest Chest palpation & inspection: normal inspection of the chest Resp Auscultation: clear to auscultation bilaterally Cardio Palpation: normal PMI Heart sounds: S1 normal heart sound present, S2 normal heart sound present, no gallops, no murmurs and no rubs GI Palpation (GI): Soft to palpation Back/Spine/Pelvis Other: unremarkable Skin General skin exam: no rashes or lesions noted Neuro General: patient oriented x3 Extrem General: Yes normal to inspection Psych Mental Status: mental status grossly normal Assessment & Plan Assessment & Plan (1) Atherosclerotic cardiovascular disease: Code(s): I25.10 - Atherosclerotic heart disease of [place] coronary artery without angina pectoris Category: Medical Plan: Continue Aspirin. Continue beta-blockers and statins. He has symptoms of forehead sweating only but not very atypical for cardiac. He has got no clear-cut angina. Can plan on repeating stress testing. Cardiac data- Cardiac [id number]/stenting of proximal RCA, right posterolateral segment, mid circumflex. Echocardiogram-10/2020-normal LVEF, mild diastolic dysfunction and no significant valvular pathology. Myocardial perfusion Imaging-10/2020-no ischemia or infarction. (2) Essential hypertension: Code(s): I10 - Essential (primary) hypertension Category: Medical Plan: Continue Lisinopril. Normal blood pressure today. (3) Other and unspecified hyperlipidemia: Code(s): E78.5 - Hyperlipidemia, unspecified Category: Medical Plan: Continue statins. Last LDL 67mg/dl. Orders: Orders CA lexiscan stress w luis f Today I20.9 - Angina pectoris, unspecified, I25.10 - Atherosclerotic heart disease of [place] coronary artery without angina pectoris NM cardiolite stress test Today I25.10 - Atherosclerotic heart disease of [place] coronary artery without angina pectoris, R07.2 - Precordial pain Coding Level of Care Code Est Pt Level 4 (32500) Diagnoses Atherosclerotic cardiovascular disease I25.10 Essential hypertension I10 Other and unspecified hyperlipidemia E78.5
[2024-10-20 10:30] VITALS: BP 110/58; PULSE 75; BMI 33.4
== END 2024-10-20 10:54 | disposition home or self-care (01) ==
PROVIDERS: PCP Internal Medicine; Visit Provider Internal Medicine
DX: I25.10 Atherosclerotic heart disease of native coronary artery without angina pectoris (principal); I10 Essential (primary) hypertension; E78.5 Hyperlipidemia, unspecified
CPT/HCPCS: 99214

== ENCOUNTER → 2024-10-20 10:27 | Outpatient (BNVA) | payer OTHER, SELFPAY | PROVIDERS: PCP Internal Medicine; Visit Provider Internal Medicine | DX: I25.10 Atherosclerotic heart disease of native coronary artery without angina pectoris (principal); I10 Essential (primary) hypertension; E78.5 Hyperlipidemia, unspecified | CPT/HCPCS: 99212 ==

== ENCOUNTER → 2024-10-27 09:48 | Outpatient (REF) | payer OTHER, SELFPAY ==
--- NOTE | ~2024-10-27 | NM_ITS ---
Lexiscan Myocardial perfusion study Indication: Precordial chest pain Technique: The patient was brought in for a Lexiscan perfusion study on 10/27/2024 and was injected 0.4 mg of Lexiscan intravenously. Within a minute of this injection 35 mCi of sestamibi was given intravenously. Images were obtained using the SPECT gamma camera interlaced with the gating device. Images were obtained in supine position. Resting perfusion study was performed on 10/28/2024. Patient was administered 35 mCi of sestamibi intravenously at rest. Images were then obtained in supine position. Images obtained with and without CT attenuation. Total DLP 85 mGy-cm. Images were processed with the software and compared side to side in short axis, horizontal long axis and vertical long axis views. Findings: The stress perfusion study showed nonattenuated images show mildly reduced uptake in the inferolateral wall of the LV myocardium as well as mildly reduced uptake in the inferior wall of the LV myocardium. Remainder of the LV myocardium is normally perfused. Attenuated corrected images show mildly reduced uptake in the basal and mid inferior as well as basal inferolateral wall of the LV myocardium.. The gated study shows normal LV systolic function with calculated LVEF of 64%. LV cavity is normal in size. The gated study shows normal systolic wall thickening and contraction of segments. Resting study shows nonattenuated images show improved uptake in the inferolateral wall of the LV myocardium as well as basal inferior wall of the LV myocardium. Attenuated corrected images show improved uptake in the basal inferior and inferolateral wall of the LV myocardium.. Gating at rest reveals normal systolic wall motion with ejection fraction at greater than 60%. The findings are consistent with likely mild intensity basal inferior and inferolateral ischemia in RCA/circumflex distribution.. NM/NM cardiolite stress test Impression: 1. Myocardial perfusion imaging study shows mild intensity basal inferior and inferolateral ischemia 2. Gated LVEF is 64% 3. Transient ischemic dilatation not present Nondiagnostic changes on EKG on EKG. Electronically signed by: Ryan Lee MD 10/29/2024 11:51 AM [facility]
--- NOTE | 2024-10-27 09:50 | CA_ITS ---
Acquisition Time: 2024-10-27 10:06:25 Total Exercise Time: 00:02:00 Test Indications: CP, CAD Medications: SEE H Protocol: LEXISCAN Max HR: 129 BPM 81% of Pred: 159 BPM Max BP: 144/072 mmHG Max Work Load: 1.0 METS Pharmacologic stress test with Lexiscan, while pt marches in his chair, with reports of feeling warm, facial flushing, and SOB, no chest discomfort, without any arrythmias, with normotensive response to injection. In recovery, pt treated with IVP Aminophylline 75 mg to reverse Lexiscan. Pt feeling back to baseline. Nuclear images pending. Test reviewed with Dr. Lee. Referred By: Heath Jay Overread By: Ulises Velez
== END ==
LOC: HO.CARD 09:48
PROVIDERS: PCP Internal Medicine; Visit Provider Internal Medicine
DX: R07.2 Precordial pain (principal); I25.119 Atherosclerotic heart disease of native coronary artery with unspecified angina pectoris
CPT/HCPCS: 78452; 93017; A9500; J0280; J2785

== ENCOUNTER → 2024-10-27 09:50 | Outpatient (BNV) | payer OTHER, SELFPAY | PROVIDERS: PCP Internal Medicine | DX: I25.5 Ischemic cardiomyopathy (principal) | CPT/HCPCS: 78452 ==

== ENCOUNTER → 2024-11-20 23:59 | Outpatient (BNV) | payer OTHER, SELFPAY | PROVIDERS: PCP Internal Medicine; Visit Provider Internal Medicine Cardiovascular Disease | DX: R93.1 Abnormal findings on diagnostic imaging of heart and coronary circulation (principal); I20.89 Other forms of angina pectoris | CPT/HCPCS: 93458; 99152 ==

== ENCOUNTER → 2024-12-04 08:32 | Outpatient (BNVA) | payer OTHER, SELFPAY | PROVIDERS: PCP Internal Medicine; Visit Provider Nurse Practitioner Family | DX: I10 Essential (primary) hypertension (principal); I25.2 Old myocardial infarction; I25.10 Atherosclerotic heart disease of native coronary artery without angina pectoris; E78.5 Hyperlipidemia, unspecified; Z95.5 Presence of coronary angioplasty implant and graft; Z98.890 Other specified postprocedural states | CPT/HCPCS: 99212 ==

== ENCOUNTER 2024-12-11 08:07 | Outpatient (AMB) | payer OTHER, SELFPAY ==
--- NOTE | 2024-12-11 08:17 | A.OFFPC_ITS ---
Vital Signs 12/11/24 08:20 Height 5 ft 8 in Weight 222 lb 2 oz BMI 33.8 BP 136/70 Blood Pressure Location Lt brachial Position Sitting Pulse 72 Pulse Source Pulse Oximeter Temp 97.1 F Temp Source Skin Pulse Oximetry (%) 96 Oxygen Delivery Method Room Air Intake Visit Reasons: 3mth f/u Intake Note: Patient is here to follow up on HTN, HLD . 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 Since last office visit patient had for a cardiac evaluation. A nuclear stress test was positive for ischemia. Subsequently he underwent a cardiac catheterization. Patient was found to have coronary artery disease and medical optimization was considered appropriate treatment. His cholesterol dosage has been doubled. Patient has had not much discomfort since the last office visit. No diaphoresis. Continues to have pain in the right hip radiating into the leg. Pain is worse when he is getting up from a sitting position. Continuing his opiates for chronic pain syndrome. [facility] Medical History (Updated 12/11/24 @ 08:54 by Alan Kenney MD) Arthritis of left hip History of [place] (myocardial infarction) Tubular adenoma Elevated cholesterol Other and unspecified hyperlipidemia Essential hypertension Atherosclerotic cardiovascular disease Lumbar discogenic pain syndrome Screening for colon cancer Surgical History History of cardiac cath History of dental surgery History of bone graft H/O colonoscopy (~11/29/20) History of lumbar surgery History of intravascular stent placement History of surgery H/O hernia repair Family History Father Hx of type 1 diabetes mellitus Hx of congenital heart disease Mother Alive and well Social History (Reviewed 12/11/24 @ 08:17 by YING Carvajal Household Members: Spouse Housing: House Alcohol intake: current Alcohol intake frequency: does not drink Patient Tobacco Use Status: Former Tobacco user Tobacco use type: Cigarette e-Cigarette/Vaping Use: Never Used Second Hand Smoke Exposure: No Substance Use Type: Marijuana service: Yes Current occupational status: employed Current occupational exposures/hazards: No Cognitive needs: No Hearing needs: No Vision needs: Yes (glasses) Questionnaire PHQ-9 Over the last 2 weeks, how often have you been bothered by any of the following problems? 1. Little interest or pleasure in doing things: not at all 2. Feeling down, depressed, or hopeless: not at all 3. Trouble falling or staying asleep, or sleeping too much: not at all 4. Feeling tired or having little energy: not at all 5. Poor appetite or overeating: not at all 6. Feeling bad about yourself - or that you are a failure or have let yourself or your family down: not at all 7. Trouble concentrating on things, such as reading the newspaper or watching television: not at all 8. Moving or speaking so slowly that other people could have noticed. Or the opposite - being so fidgety or restless that you have been moving around a lot more than usual: not at all 9. Thoughts that you would be better off or of hurting yourself in some way: not at all Total score: 0 Depression Screening Interpretation: Negative Depression Screening Done: Yes Source: Developed by Drs. Julito Prasad, Sherita Lucero, Sang Gómez and colleagues, with an educational catie from [employer]. Thrive Questionnaire Date Thrive assessed: 12/11/24 I am a: Patient What is your living situation today?: I have a steady place to live Within the past 12 months, did the food you bought not last and you didn't have the money to get more?: Never true Within the past 12 months, did you worry whether your food would run out before you got money to buy more?: Never true Do you have trouble paying for medicines?: No Do you have trouble getting transportation to medical appointments?: No Do you have trouble paying your heating and electricity bill?: No Do you have trouble taking care of your child, family member or friend?: No Do you have trouble with day-to-day activities such as bathing, preparing meals, shopping, managing finances, etc.?: No Are you currently unemployed and looking for a job?: No Are you interested in more education?: No Please select the resources that you would like help with: None Currently or been in a relationship where the following occur: No concerns reported THRIVE Score: 0 AUDIT C Alcohol Use Questionnaire (AUDIT-C) 1. How often do you have a drink containing alcohol?: Never Total Score: 0 MIKAEL-7 AMB Questionnaire MIKAEL-7 Date MIKAEL - 7 assessed: 12/11/24 Feeling nervous, anxious, or on edge: 0 = Not at all Not being able to stop or control worryin = Not at all Worrying too much about different things: 0 = Not at all Trouble relaxin = Not at all Being so restless that it is hard to sit still: 0 = Not at all Becoming easily annoyed or irritable: 0 = Not at all Feeling afraid as if something awful might happen: 0 = Not at all Total MIKAEL-7 score (0-4 normal; 5-9 mild; 10-14 moderate; 15-21 severe): 0 Source: Developed by Drs. Julito Prasad, Sherita Lucero, Sang Gómez and colleagues, with an educational catie from [employer]. Physical exam (Primary Care) Vital Signs: Last Vital Signs Temp 97.1 F 12/11/24 08:20 Pulse 72 12/11/24 08:20 BP 136/70 12/11/24 08:20 Pulse Ox 96 12/11/24 08:20 Oxygen Delivery Method Room Air 12/11/24 08:20 BMI result Body Mass Index 33.8 Tobacco/Smoking Status: Tobacco use Status Tobacco use date assessed 12/11/24 12/11/24 08:30 Patient Tobacco Use Status Former Tobacco user 12/11/24 08:30 Tobacco use type Cigarette 12/11/24 08:30 e-Cigarette/Vaping Use Never Used 12/11/24 08:30 PHQ-9: PHQ-9 Score PHQ-9: Total score 0 12/11/24 08:30 Depression Screening Interpretation: Negative Thrive Assessment: Date of Thrive Assessment Date Thrive assessed 12/11/24 12/11/24 08:30 Currently or been in a relationship where the following occur: No concerns reported Const General: cooperative and healthy appearing Nutritional Appearance: well nourished Orientation/consciousness: patient oriented x3 Limitations: no limitations HENMT Head: Yes normal to inspection Eyes General: appearance normal, both eyes and all related structures Neck Neck: Yes normal visual inspection Chest Chest palpation & inspection: normal palpation of entire chest wall Resp Effort & Inspection: normal respiratory effort Neuro General: patient oriented x3 Coding Level of Care Code Est Pt Level 4 (57011) Complex EM visit Add On G2211 Diagnoses Essential hypertension I10 Atherosclerotic cardiovascular disease I25.10 Arthritis of left hip M16.12 Assessment & Plan Assessment & Plan (1) Essential hypertension: Code(s): I10 - Essential (primary) hypertension Category: Medical Plan: BP is in range. Continue medications at same dosage. (2) Atherosclerotic cardiovascular disease: Code(s): I25.10 - Atherosclerotic heart disease of [place] coronary artery without angina pectoris Category: Medical Plan: Medical management of CAD. History of CAD with prior MA. cardiac catheterization 07/04/2005 with stents placed to the RCA, RPL, and left circumflex. On last visit he reported episodes of diaphoresis, no chest discomfort. He did undergo a nuclear stress test on 10/27/2024 which showed mild intensity basal inferior and inferior lateral ischemia, EF 64%. He then underwent cardiac catheterization on 11/20/2024 which showed lad mid 65% stenosis, patent stents in the mid left circumflex and 1st RPL, RCA proximal stent 60-70% in stent restenosis, RCA mid 60% stenosis. His prior episodes diaphoresis have since resolved. We will continue with medical management at this time. Catheterization results reviewed with him in detail. The need for ongoing risk factor modification discussed. Continue aspirin indefinitely. Continue rosuvastatin with ideal LDL goal less than 70. Continue metoprolol and lisinopril for good blood pressure and heart rate control. His blood pressure today is 100/52. Benefits of weight loss and increasing physical activity discussed. He declines cardiac rehab. Cardiology follow-up in 6 months, sooner if needed. (3) Arthritis of left hip: Code(s): M16.12 - Unilateral primary osteoarthritis, left hip Category: Medical Plan: X rays are consistent with arthritis. Patient is declining any steroid injection in the hip and declines physical therapy.
[2024-12-11 08:20] VITALS: BP 136/70; PULSE 72; TEMP 36.2; O2SAT 96; BMI 33.8
== END 2024-12-11 11:06 | disposition home or self-care (01) ==
PROVIDERS: PCP Internal Medicine; Visit Provider Internal Medicine
DX: I10 Essential (primary) hypertension (principal); I25.10 Atherosclerotic heart disease of native coronary artery without angina pectoris; M16.12 Unilateral primary osteoarthritis, left hip

== ENCOUNTER → 2024-12-11 08:07 | Outpatient (BNVA) | payer OTHER, SELFPAY | PROVIDERS: PCP Internal Medicine; Visit Provider Internal Medicine | DX: I10 Essential (primary) hypertension (principal); I25.10 Atherosclerotic heart disease of native coronary artery without angina pectoris; M16.12 Unilateral primary osteoarthritis, left hip | CPT/HCPCS: 99212 ==

== ENCOUNTER 2025-06-25 08:20 | Outpatient (AMB) | payer OTHER, SELFPAY ==
--- NOTE | 2025-06-25 08:21 | MHC.PC.OV ---
Vital Signs 06/25/25 08:23 Height 5 ft 8 in Weight 227 lb 2 oz BMI 34.5 BP 130/70 Blood Pressure Location Lt brachial Position Sitting Pulse 72 Pulse Source Pulse Oximeter Temp 97.1 F Temp Source Temporal Artery Scan Pulse Oximetry (%) 97 Oxygen Delivery Method Room Air Intake Visit Reasons: 6mth f/u - see comments Intake Note: Patient is here to follow up on HTN. 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 Accompanied by: Self / Same As Patient Allergies No Known Allergies Allergy (Verified 06/25/25 08:22) Tobacco use date assessed: 06/25/25 Dental Screening Dental Screen Date: 12/11/24 [facility] Medical History (Updated 06/25/25 @ 08:44 by Alan Kenney MD) Arthritis of right hip Arthritis of left hip History of SC (myocardial infarction) Tubular adenoma Elevated cholesterol Other and unspecified hyperlipidemia Essential hypertension Atherosclerotic cardiovascular disease Lumbar discogenic pain syndrome Screening for colon cancer Surgical History History of cardiac cath History of dental surgery History of bone graft H/O colonoscopy (~12/21/20) History of lumbar surgery History of intravascular stent placement History of surgery H/O hernia repair Family History Father Hx of type 1 diabetes mellitus Hx of congenital heart disease Mother Alive and well Social History Household Members: Spouse Housing: House Alcohol intake: current Alcohol intake frequency: does not drink Patient Tobacco Use Status: Former Tobacco user Tobacco use type: Cigarette e-Cigarette/Vaping Use: Never Used Second Hand Smoke Exposure: Yes Substance Use Type: Marijuana service: Yes Current occupational status: employed Current occupational exposures/hazards: No Cognitive needs: No Hearing needs: No Vision needs: Yes (glasses) Questionnaire PHQ-9 Over the last 2 weeks, how often have you been bothered by any of the following problems? 1. Little interest or pleasure in doing things: not at all 2. Feeling down, depressed, or hopeless: not at all 3. Trouble falling or staying asleep, or sleeping too much: not at all 4. Feeling tired or having little energy: not at all 5. Poor appetite or overeating: not at all 6. Feeling bad about yourself - or that you are a failure or have let yourself or your family down: not at all 7. Trouble concentrating on things, such as reading the newspaper or watching television: not at all 8. Moving or speaking so slowly that other people could have noticed. Or the opposite - being so fidgety or restless that you have been moving around a lot more than usual: not at all 9. Thoughts that you would be better off or of hurting yourself in some way: not at all Total score: 0 Depression Screening Interpretation: Negative Depression Screening Done: Yes Source: Developed by Drs. Julito Prasad, Sherita Lucero, Sang Gómez and colleagues, with an educational catie from [employer]. Thrive Questionnaire Date Thrive assessed: 12/11/24 I am a: Patient What is your living situation today?: I have a steady place to live Within the past 12 months, did the food you bought not last and you didn't have the money to get more?: I choose not to answer this question Within the past 12 months, did you worry whether your food would run out before you got money to buy more?: I choose not to answer this question Do you have trouble paying for medicines?: I choose not to answer this question Do you have trouble getting transportation to medical appointments?: I choose not to answer this question Do you have trouble paying your heating and electricity bill?: I choose not to answer this question Do you have trouble taking care of your child, family member or friend?: I choose not to answer this question Do you have trouble with day-to-day activities such as bathing, preparing meals, shopping, managing finances, etc.?: I choose not to answer this question Are you currently unemployed and looking for a job?: I choose not to answer this question Are you interested in more education?: I choose not to answer this question Please select the resources that you would like help with: None Currently or been in a relationship where the following occur: I choose not to answer THRIVE Score: 0 AUDIT C Alcohol Use Questionnaire (AUDIT-C) 1. How often do you have a drink containing alcohol?: Never Total Score: 0 MIKAEL-7 AMB Questionnaire MIKAEL-7 Date MIKAEL - 7 assessed: 12/11/24 Feeling nervous, anxious, or on edge: 0 = Not at all Not being able to stop or control worryin = Not at all Worrying too much about different things: 0 = Not at all Trouble relaxin = Not at all Being so restless that it is hard to sit still: 0 = Not at all Becoming easily annoyed or irritable: 0 = Not at all Feeling afraid as if something awful might happen: 0 = Not at all Total MIKAEL-7 score (0-4 normal; 5-9 mild; 10-14 moderate; 15-21 severe): 0 Source: Developed by Drs. Julito Prasad, Sherita Lucero, Sang Gómez and colleagues, with an educational catie from [employer]. Physical exam (Primary Care) Vital Signs: Last Vital Signs Temp 97.1 F 06/25/25 08:23 Pulse 72 06/25/25 08:23 BP 130/70 06/25/25 08:23 Pulse Ox 97 06/25/25 08:23 Oxygen Delivery Method Room Air 06/25/25 08:23 BMI result Body Mass Index 34.5 Tobacco/Smoking Status: Tobacco use Status Tobacco use date assessed 06/25/25 06/25/25 08:28 Patient Tobacco Use Status Former Tobacco user 06/25/25 08:28 Tobacco use type Cigarette 06/25/25 08:28 e-Cigarette/Vaping Use Never Used 06/25/25 08:28 PHQ-9: PHQ-9 Score PHQ-9: Total score 0 06/25/25 08:28 Depression Screening Interpretation: Negative Thrive Assessment: Date of Thrive Assessment Date Thrive assessed 12/11/24 06/25/25 08:28 Currently or been in a relationship where the following occur: I choose not to answer Coding Level of Care Code Est Pt Level 4 (63887) Complex EM visit Add On G2211 Diagnoses Arthritis of right hip M16.11 Assessment & Plan Assessment & Plan (1) Arthritis of right hip: Code(s): M16.11 - Unilateral primary osteoarthritis, right hip Category: Medical Plan: History of Present Illness - The patient is a 60-year-old male presenting with hip pain due to osteoarthritis. - Reports severe hip pain, described as feeling like sitting on rocks, ongoing and worsening over time. - Pain disrupts sleep and is not relieved by current medication, including oxycodone. - X-rays confirm osteoarthritis; patient has not seen an property preservation specialist yet. - Additional ankle pain attributed to extensive arthritis. - Currently on maximum doses of pain medication; desires definitive treatment. - Preventative care includes blood work, last done in October. Social History Review of Systems - Musculoskeletal: Reports severe hip pain, feeling like sitting on rocks, and additional ankle pain. - General: Reports disrupted sleep due to pain. Physical Exam General: Cooperative and healthy appearing Nutritional Appearance: Well nourished Orientation/consciousness: Patient oriented x3 Limitations: No limitations Head: Normal to inspection General: Appearance normal, both eyes and all related structures Neck: Normal visual inspection Chest: Normal palpation of entire chest wall Respiratory: N ormal respiratory effort Neurology: Patient oriented x3, reports severe pain in hips and ankles due to extensive arthritis. Results - Imaging: X-rays confirm osteoarthritis of the hips. Plan 1. Osteoarthritis Of The Hips - Referral to orthopedics for evaluation of surgical candidacy and potential steroid injections. - Consideration of muscle relaxants to aid in pain management. 2. Extensive Arthritis - Pain management with current medications; further evaluation by orthopedics recommended. 3. Preventative Care: Blood Work - Blood work to be completed soon, as last done in October. Discussion Notes I discussed with the patient the need for an orthopedic consultation to evaluate the possibility of surgery or steroid injections for hip osteoarthritis. We also talked about adding a muscle relaxant to help manage the pain. The patient was advised to complete blood work soon, as it was last done in October. Follow-up is planned in six months, but the patient should complete the blood work within the next week. Patient Instructions - Schedule an appointment with orthopedics for hip evaluation. - Complete blood work within the next week. - Consider using a muscle relaxant as discussed with your doctor. Orders: Referrals Orthopedics Referral M16.11 - Unilateral primary osteoarthritis, right hip
[2025-06-25 08:23] VITALS: BP 130/70; PULSE 72; TEMP 36.2; O2SAT 97; BMI 34.5
== END 2025-06-25 08:44 | disposition home or self-care (01) ==
LOC: HO.HMCH 08:20
PROVIDERS: PCP Internal Medicine; Visit Provider Internal Medicine
DX: M16.11 Unilateral primary osteoarthritis, right hip (principal)

== ENCOUNTER → 2025-06-25 08:20 | Outpatient (BNVA) | payer OTHER, SELFPAY | PROVIDERS: PCP Internal Medicine; Visit Provider Internal Medicine | DX: M16.11 Unilateral primary osteoarthritis, right hip (principal); I10 Essential (primary) hypertension | CPT/HCPCS: 99212 ==

== ENCOUNTER 2025-09-18 08:35 | Outpatient (AMB) | payer OTHER, SELFPAY ==
--- NOTE | 2025-09-18 08:47 | MHC.OFFVIS ---
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 Patient reports ongoing pain for more than 6 months. He states that his pain is ongoing and its getting worse over time. Patient describes his pain like sitting on rocks and he also feels it in the joint. He reports that his pain is on the groin aspect of the hip. Patient has tried oxycodone for his back but it doesn't relief the pain. . 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 Naranjo is a 60-year-old male who presents to the office today for right hip pain. He reports that the hip pain has been present for quite some time and waxes and wanes based off of activity. Patient has a past medical history significant for myocardial infarction requiring stenting a few years ago. Currently takes 81 mg aspirin daily. No additional thinners used. Additionally, the patient has a past medical history for hypertension and hyperlipidemia. Patient denies any kidney or liver dysfunction. He continues to be able to perform his ADLs. 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 She is planning to retire in 2025. [facility] Medical History (Updated 06/25/25 @ 08:44 by Alan Kenney MD) Arthritis of right hip Arthritis of left hip History of [place] (myocardial infarction) Tubular adenoma Elevated cholesterol Other and unspecified hyperlipidemia Essential hypertension Atherosclerotic cardiovascular disease Lumbar discogenic pain syndrome Screening for colon cancer Surgical History History of cardiac cath History of dental surgery History of bone graft H/O colonoscopy (~12/21/20) History of lumbar surgery History of intravascular stent placement History of surgery H/O hernia repair Family History Father Hx of type 1 diabetes mellitus Hx of congenital heart disease Mother Alive and well Social History Household Members: Spouse Housing: House Alcohol intake: current Alcohol intake frequency: does not drink Patient Tobacco Use Status: Former Tobacco user Tobacco use type: Cigarette e-Cigarette/Vaping Use: Never Used Second Hand Smoke Exposure: Yes Substance Use Type: Marijuana service: Yes Current occupational status: employed Current occupational exposures/hazards: No Cognitive needs: No Hearing needs: No Vision needs: Yes (glasses) Review of Systems Const All systems reviewed & are unremarkable except as noted in HPI and below Physical Exam Vital Signs: BMI result Body Mass Index 34.5 Const General: cooperative, healthy appearing and no acute distress Resp Effort & Inspection: normal respiratory effort and able to speak in complete sentences Extrem Other: Right hip: Limitation with internal external rotation associated with groin pain. No tenderness to palpation over the greater trochanteric bursa. 5/5 strength with resisted hip flexion, knee extension, abduction, and abduction. Able to perform straight leg raise. NVI. Psych Appearance: grossly normal Mental Status: mental status grossly normal Attitude: cooperative Assessment & Plan Assessment & Plan (1) Arthritis of right hip: Code(s): M16.11 - Unilateral primary osteoarthritis, right hip Category: Medical Plan Mr. Naranjo is a 60-year-old male who presents to the office today for right hip pain. He reports that the hip pain has been present for quite some time and waxes and wanes based off of activity. Patient denies any injury or trauma to the right hip. Patient reports that he had x-rays in 2023 in which he was diagnosed with osteoarthritis and has had continuation of pain ever since. Patient has a past medical history significant for myocardial infarction requiring stenting a few years ago. Currently takes 81 mg aspirin daily. No additional thinners used. Additionally, the patient has a past medical history for hypertension and hyperlipidemia. Patient denies any kidney or liver dysfunction. He continues to be able to perform his ADLs. 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 She is planning to retire in 2025. Of note, the patient does take oxycodone 7.5-325 mg t.i.d. chronically for low back pain. While in the office today, we discussed conservative versus surgical treatment options. Surgical treatment options including total hip replacement was discussed. However, the patient has a phobia of undergoing anesthesia and would like to avoid surgical intervention at all costs. Conservative treatment options including oral anti-inflammatories, physical therapy and cortisone injection. At this time the patient does not wish to move forward with cortisone injection. He is however interested in oral anti-inflammatories. I have sent a prescription for Celebrex 200 mg to be taken p.o. b.i.d. PRN pain in the right hip. Reviewed patient history including no GI ulcer/bleed, CKD, CHF, CAD, liver disease, bleeding disorders, or NSAID allergy. Current medications reviewed with no interactions or duplicate NSAID use. Discussed orthopedic considerations, including short-term use being appropriate for soft-tissue pain and potential effects on fracture healing if applicable. Reviewed risks: GI irritation/bleeding, renal impairment, cardiovascular risk, and avoiding multiple NSAIDs. Instructed patient to take with food, avoid alcohol, and monitor for red-flag symptoms (black stools, hematemesis, severe abdominal pain, decreased urination, chest pain, SOB, worsening pain). Patient verbalized understanding. He will follow up PRN, sooner if needed. X-rays of the right hip and pelvis were obtained on 08/05/2024 revealed right hip osteoarthritis. Medications: New celecoxib (Celebrex) 200 mg PO BID 60 caps 0RF 30 days Coding Level of Care Code New Pt Level 4 (70951) Diagnoses Arthritis of right hip M16.11
[2025-09-18 08:50] VITALS: BMI 34.5
== END 2025-09-18 09:17 | disposition home or self-care (01) ==
LOC: HO.HOS 08:35
PROVIDERS: PCP Internal Medicine; Visit Provider Physician Assistant
DX: M16.11 Unilateral primary osteoarthritis, right hip (principal)
CPT/HCPCS: 99204

== ENCOUNTER → 2025-09-18 08:35 | Outpatient (BNVA) | payer OTHER, SELFPAY | PROVIDERS: PCP Internal Medicine; Visit Provider Physician Assistant | DX: M25.551 Pain in right hip (principal); M16.11 Unilateral primary osteoarthritis, right hip | CPT/HCPCS: 99202 ==